=== PATIENT | female | born 1960 | race Caucasian/White ===

== ENCOUNTER 2017-03-03 17:26 | Inpatient (IN) ==
--- NOTE | 2017-03-03 17:43 | Emergency Department Note ---
Disposition Clinical Impression: Abdominal pain Disposition: Still a Patient Condition: Good Referrals: NONE,PCP [Primary Care Provider] - Forms: Work/School Release, ED Satisfaction Letter General Adult HPI - General Chief complaint: ED Abdominal Pain Stated complaint: ABD PAIN Time Seen by Provider: 03/03/17 17:37 Source: patient Limitations: no limitations - History of Present Illness Pain Scale: 8 - Related Data Allergies Allergy/AdvReac Type Severity Reaction Status Date / Time sulfamethoxazole AdvReac See Verified 03/03/17 17:30 [From Bactrim] Comments trimethoprim [From Bactrim] AdvReac See Verified 03/03/17 17:30 Comments Past Medical History - Past Medical History Medical history: Reports: asthma, COPD, diabetes, hyperlipidemia, hypertension Psychiatric history: 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 - Social History Smoking Status: Current every day smoker Smokeless Tobacco Status: No Alcohol use: Reports: rarely Drug use: Reports: marijuana Physical Exam - General Limitations: no limitations General appearance: alert Course Vital Signs Temperature 97.9 F 03/03/17 17:29 Pulse Rate 65 03/03/17 17:29 Respiratory Rate 22 03/03/17 17:29 Blood Pressure 155/84 03/03/17 17:29 O2 Sat by Pulse Oximetry 95 03/03/17 17:29 Temperature 97.9 F 03/03/17 17:29 Pulse Rate 65 03/03/17 17:29 Respiratory Rate 22 03/03/17 17:29 Blood Pressure 155/84 03/03/17 17:29 O2 Sat by Pulse Oximetry 95 03/03/17 17:29 Oxygen Delivery Oxygen Delivery Room Air Medical Decision Making - Lab Data Result diagrams: 03/03/17 17:55 03/03/17 17:55 Lab Results 03/03/17 03/03/17 Range/Units 17:55 17:55 WBC 24.9 H (4.3-11.1) K/mcL RBC 5.06 H (3.82-4.97) M/mcL Hgb 14.6 (11.5-15.4) g/dL Hct 45.5 H (35.3-44.9) % MCV 89.9 (83.0-100.0) fL MCH 28.9 (28.0-33.3) pg MCHC 32.1 (31.6-35.5) g/dL RDW 13.1 (11.5-14.5) % Plt Count 314 (140-400) K/mcL MPV 10.5 (9.4-12.4) fL Immature Gran % 0.6 (0-4) % Seg Neutrophils % 85.8 % Lymphocytes % 8.7 % Monocytes % 4.7 % Eosinophils % 0.0 % Basophils % 0.2 % Neutrophils # 21.4 H (1.6-8.9) K/mcL Lymphocytes # 2.2 (0.6-4.6) K/mcL Monocytes # 1.2 (0.0-1.3) K/mcL Eosinophils # 0.0 (0.0-0.6) K/mcL Basophils # 0.1 (0.0-0.2) K/mcL Platelet Estimate Normal (Normal) Sodium 137 (136-145) mEq/L Potassium 4.2 (3.5-4.5) mEq/L Chloride 102 (98-109) mEq/L Carbon Dioxide 25 (19-29) mEq/L BUN 11 (7-20) mg/dL Creatinine 0.77 (0.57-1.11) mg/dL Est GFR ( Amer) > 60 (> 60) Est GFR (Non-Af Amer) > 60 (> 60) BUN/Creatinine Ratio 14 (6-26) Glucose 154 H (70-99) mg/dL Calculated Osmolality 286 (280-300) Calcium 9.5 (8.6-10.8) mg/dL Total Bilirubin < 0.3 (0.2-1.2) mg/dL AST 20 (5-34) Units/L ALT 25 (0-55) Units/L Alkaline Phosphatase 65 (38-126) Units/L Serum Total Protein 8.0 (6.0-8.3) g/dL Albumin 3.9 (3.5-5.0) g/dL Globulin 4.1 H (2.4-3.5) g/dL Albumin/Globulin Ratio 1.0 L (1.1-2.2) Lipase 23 (8-78) Units/L Attestation Statement - Attestation Attestation: I examined this patient and my medical decision-making was reviewed with the Resident Physician. I agree with the documented findings, disposition and treatment plan as described except to the extent set forth below. [id number] time provided Patient was sent from [facility] with concern for biliary colic but they were unable to process an ultrasound. She complains of upper abdominal pain but appears in no acute distress 18:23: Care to be endorsed to the oncoming physician Dr. Brush at 7 PM pending gallbladder ultrasound.
[2017-03-03] MEDS ORDERED: Hyoscyamine SL 0.125 MG TAB.SUBL SL STA (17:45)
--- NOTE | 2017-03-03 17:48 | Emergency Department Note ---
Disposition Clinical Impression: Abdominal pain Qualifiers: Abdominal location: right upper quadrant Qualified Code(s): R10.11 - Right upper quadrant pain Disposition: Still a Patient Condition: Good Referrals: NONE,PCP [Primary Care Provider] - Forms: ED Satisfaction Letter, Work/School Release Time of Disposition: 18:45 General Adult HPI - General Chief complaint: ED Abdominal Pain Stated complaint: ABD PAIN Time Seen by Provider: 03/03/17 17:37 Source: patient Limitations: no limitations Nursing Notes Reviewed: Yes Vital Signs Reviewed: Yes - History of Present Illness HPI Narrative: Right Upper quadrant abdominal pain that started last night. Associated nausea and vomiting. No diarrhea. No fevers. Pain started in her back and radiates to her abdomen. Has been seen at outlying facility and sent here. Pain Scale: 8 - Related Data Allergies Allergy/AdvReac Type Severity Reaction Status Date / Time sulfamethoxazole AdvReac See Verified 03/03/17 17:30 [From Bactrim] Comments trimethoprim [From Bactrim] AdvReac See Verified 03/03/17 17:30 Comments All systems ED: reviewed and negative except as stated. Constitutional: Denies: fever, chills Cardiovascular: Denies: chest pain, syncope Respiratory: Denies: cough, dyspnea Gastrointestinal: Reports: abdominal pain, nausea, vomiting. Denies: diarrhea, hematemesis, melena, hematochezia Genitourinary: Denies: urgency, dysuria, frequency, hematuria Musculoskeletal: Reports: back pain (Radiates to her right upper quadrant.). 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 Absent: scleral icterus - ENT ENT exam: normal exam, normal oropharynx, mucous membranes moist - Neck Neck exam: Present: normal inspection, full ROM, trachea midline. Absent: tenderness - Chest Chest inspection: Present: normal inspection, symmetric chest wall rise. Absent : tenderness, rash - Respiratory Respiratory exam: Present: normal lung sounds bilaterally. Absent: respiratory distress, accessory muscle use - Cardiovascular Cardiovascular exam: Present: regular rate, normal rhythm, normal heart sounds - Abdominal Exam Abdominal exam: Present: soft, tenderness (Right upper quadrant on palpation.), guarding (Right upper quadrant), Hayes's sign. Absent: distention, rebound, rigidity, organomegaly, Rovsing's sign, tenderness at McBurney's Point - Extremities Exam Extremities exam: Present: normal inspection, full ROM, normal capillary refill. Absent: tenderness, pedal edema Course Course Narrative: Patient ambulates to bed without difficulty. She is standing during most of my exam. She appears pleasant. She states that last night she started having nausea and vomiting. She describes the pain in her right back that radiates to her right upper quadrant. She states that she was seen at [facility] and given Phenergan and this helped with her nausea and vomiting however the pain is still present. She was sent here for right upper quadrant abdominal ultrasound. She is afraid that she might have a gallbladder issue. She denies any other medical history. She states she has never had any abdominal surgeries. On exam her lung sounds are clear heart tones are normal. She does have a positive Hayes sign. She appears very uncomfortable whenever I palpate her right upper quadrant. No signs of edema to her extremities. We have ordered a right upper quadrant abdominal ultrasound as well as basic lab workup. She does have an elevated white blood cell count. We have ordered her Levsin to help with her abdominal pain. We will sign patient now tonight crew. Vital Signs Temperature 97.9 F 03/03/17 17:29 Pulse Rate 65 03/03/17 17:29 Respiratory Rate 22 03/03/17 17:29 Blood Pressure 155/84 03/03/17 17:29 O2 Sat by Pulse Oximetry 95 03/03/17 17:29 Temperature 97.9 F 03/03/17 17:29 Pulse Rate 65 03/03/17 17:29 Respiratory Rate 22 03/03/17 17:29 Blood Pressure 155/84 03/03/17 17:29 O2 Sat by Pulse Oximetry 95 03/03/17 17:29 Oxygen Delivery Oxygen Delivery Room Air Medical Decision Making - Medical Records Medical records reviewed: Yes I reviewed the patient's medical records. - Lab Data Lab results reviewed: Yes I reviewed the patient's lab results. Result diagrams: 03/03/17 17:55 03/03/17 17:55 Lab Results 03/03/17 03/03/17 Range/Units 17:55 17:55 WBC 24.9 H (4.3-11.1) K/mcL RBC 5.06 H (3.82-4.97) M/mcL Hgb 14.6 (11.5-15.4) g/dL Hct 45.5 H (35.3-44.9) % MCV 89.9 (83.0-100.0) fL MCH 28.9 (28.0-33.3) pg MCHC 32.1 (31.6-35.5) g/dL RDW 13.1 (11.5-14.5) % Plt Count 314 (140-400) K/mcL MPV 10.5 (9.4-12.4) fL Immature Gran % 0.6 (0-4) % Seg Neutrophils % 85.8 % Lymphocytes % 8.7 % Monocytes % 4.7 % Eosinophils % 0.0 % Basophils % 0.2 % Neutrophils # 21.4 H (1.6-8.9) K/mcL Lymphocytes # 2.2 (0.6-4.6) K/mcL Monocytes # 1.2 (0.0-1.3) K/mcL Eosinophils # 0.0 (0.0-0.6) K/mcL Basophils # 0.1 (0.0-0.2) K/mcL Platelet Estimate Normal (Normal) Sodium 137 (136-145) mEq/L Potassium 4.2 (3.5-4.5) mEq/L Chloride 102 (98-109) mEq/L Carbon Dioxide 25 (19-29) mEq/L BUN 11 (7-20) mg/dL Creatinine 0.77 (0.57-1.11) mg/dL Est GFR ( Amer) > 60 (> 60) Est GFR (Non-Af Amer) > 60 (> 60) BUN/Creatinine Ratio 14 (6-26) Glucose 154 H (70-99) mg/dL Calculated Osmolality 286 (280-300) Calcium 9.5 (8.6-10.8) mg/dL Total Bilirubin < 0.3 (0.2-1.2) mg/dL AST 20 (5-34) Units/L ALT 25 (0-55) Units/L Alkaline Phosphatase 65 (38-126) Units/L Serum Total Protein 8.0 (6.0-8.3) g/dL Albumin 3.9 (3.5-5.0) g/dL Globulin 4.1 H (2.4-3.5) g/dL Albumin/Globulin Ratio 1.0 L (1.1-2.2) Lipase 23 (8-78) Units/L S.B.A.R. - S.Eduardo.A.Jasson. Situation: Demographics (Patient sent from [facility] for a right upper quadrant abdominal ultrasound. Complaining of right upper quadrant pain that started last night. Nausea. Controlled with Phenergan.) Background: Presenting Complaint (Upper quadrant pain and nausea.) Assessment: Course and respsone to treatment (Phenergan control patient's nausea and vomiting. Left stent appears to help with the pain.), Outstanding Labs (Right upper quadrant ultrasound.) Recommendation: Recommendation based on pending studies, treatments, or consults (Physical pending right upper quadrant ultrasound. Patient does have an elevated white blood cell count.) S.B.A.R. Report Given to: Gonsalo Delatorre Repor Time: 18:52
[2017-03-03 18:02] LABS: Basophils # 0.1 K/mcL (0.0-0.2); Basophils % 0.2 %; Hematocrit 45.5 % (35.3-44.9); Hemoglobin 14.6 g/dL (11.5-15.4); Immature Granulocytes % 0.6 % (0-4); Lymphocytes # 2.2 K/mcL (0.6-4.6); Lymphocytes % 8.7 %; Mean Corpuscular HGB Conc 32.1 g/dL (31.6-35.5); Mean Corpuscular Hemoglobin 28.9 pg (28.0-33.3); Mean Corpuscular Volume 89.9 fL (83.0-100.0); Mean Platelet Volume 10.5 fL (9.4-12.4); Monocytes # 1.2 K/mcL (0.0-1.3); Monocytes % 4.7 %; Neutrophils # 21.4 K/mcL (1.6-8.9); Platelet Count 314 K/mcL (140-400); Red Blood Count 5.06 M/mcL (3.82-4.97); Red Cell Distribution Width 13.1 % (11.5-14.5); Segmented Neutrophils % 85.8 %
[2017-03-03 18:19] LABS: Alanine Aminotransferase 25 Units/L (0-55); Albumin 3.9 g/dL (3.5-5.0); Alkaline Phosphatase 65 Units/L (38-126); Aspartate Amino Transferase 20 Units/L (5-34); BUN/Creatinine Ratio 14 (6-26); Blood Urea Nitrogen 11 mg/dL (7-20); Calcium 9.5 mg/dL (8.6-10.8); Carbon Dioxide 25 mEq/L (19-29); Chloride 102 mEq/L (98-109); Globulin 4.1 g/dL (2.4-3.5); Glucose 154 mg/dL (70-99); Lipase 23 Units/L (8-78); Osmolality,Calculated 286 (280-300); Platelet Estimate Normal (Normal); Potassium 4.2 mEq/L (3.5-4.5); Sodium 137 mEq/L (136-145); eGFR For African Americans > 60 (> 60); eGFR For Non-African Americans > 60 (> 60)
[2017-03-03 18:20] LABS: Bilirubin,Total < 0.3 mg/dL (0.2-1.2)
[2017-03-03] MEDS ORDERED: 0.9 % Sodium Chloride 1,000 ML IVC ONE (19:25)
[2017-03-03] MEDS ORDERED: *HR* HYDROmorphone (PF) 1 MG/ML SYRINGE IVP ONE ×2 (19:25→20:38)
[2017-03-03] MEDS ORDERED: Ondansetron 4 MG/2 ML VIAL IVP ONE (19:25)
--- NOTE | 2017-03-03 20:41 | Emergency Department Note ---
Disposition Clinical Impression: Acute cholecystitis Abdominal pain Qualifiers: Abdominal location: right upper quadrant Qualified Code(s): R10.11 - Right upper quadrant pain Disposition: Admitted As Inpatient Condition: Good General Adult HPI - General Chief complaint: ED Abdominal Pain Stated complaint: ABD PAIN Time Seen by Provider: 03/03/17 17:37 Source: patient Limitations: no limitations - History of Present Illness Pain Scale: 8 - Related Data Allergies Allergy/AdvReac Type Severity Reaction Status Date / Time sulfamethoxazole AdvReac See Verified 03/03/17 17:30 [From Bactrim] Comments trimethoprim [From Bactrim] AdvReac See Verified 03/03/17 17:30 Comments Constitutional: Denies: fever, chills Cardiovascular: Denies: chest pain, syncope Respiratory: Denies: cough, dyspnea Gastrointestinal: Reports: abdominal pain, nausea, vomiting. Denies: diarrhea, hematemesis, melena, hematochezia Genitourinary: Denies: urgency, dysuria, frequency, hematuria Musculoskeletal: Reports: back pain (Radiates to her right upper quadrant.). 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 Anderson and Dr. Lindsay. Patient with significant right upper quadrant tenderness with acute onset of abdominal pain as well as nausea and vomiting. Elevated white count with findings consistent for acute cholecystitis. Will consult surgery in regards to further management. - Consultations Consultation #1: Discussed with Dr. Macedo. The case was discussed in its entirety including the history and physical as well as the elevated white count and ultrasound showing gallstones with pericholecystic fluid and a positive Hayes sign for concerning for acute cholecystitis. Dr. Macedo recommends admission to the hospital service and antibiotics which he is leaving up to the hospitalist team. He will consult on her and possibly take her to surgery tomorrow. Consultation #2: Discussed with Dr. Mares. Patient accepted for hospital admission. Request Zosyn to be started. Vital Signs Temperature 97.9 F 03/03/17 17:29 Pulse Rate 65 03/03/17 17:29 Respiratory Rate 22 03/03/17 17:29 Blood Pressure 155/84 03/03/17 17:29 O2 Sat by Pulse Oximetry 95 03/03/17 17:29 Temperature 97.9 F 03/03/17 17:29 Pulse Rate 87 03/03/17 20:56 Respiratory Rate 18 03/03/17 21:22 Blood Pressure 131/82 03/03/17 21:22 O2 Sat by Pulse Oximetry 92 03/03/17 20:56 Oxygen Delivery Oxygen Delivery Room Air Medical Decision Making - Lab Data Result diagrams: 03/03/17 17:55 03/03/17 17:55 Lab Results 03/03/17 03/03/17 Range/Units 17:55 17:55 WBC 24.9 H (4.3-11.1) K/mcL RBC 5.06 H (3.82-4.97) M/mcL Hgb 14.6 (11.5-15.4) g/dL Hct 45.5 H (35.3-44.9) % MCV 89.9 (83.0-100.0) fL MCH 28.9 (28.0-33.3) pg MCHC 32.1 (31.6-35.5) g/dL RDW 13.1 (11.5-14.5) % Plt Count 314 (140-400) K/mcL MPV 10.5 (9.4-12.4) fL Immature Gran % 0.6 (0-4) % Seg Neutrophils % 85.8 % Lymphocytes % 8.7 % Monocytes % 4.7 % Eosinophils % 0.0 % Basophils % 0.2 % Neutrophils # 21.4 H (1.6-8.9) K/mcL Lymphocytes # 2.2 (0.6-4.6) K/mcL Monocytes # 1.2 (0.0-1.3) K/mcL Eosinophils # 0.0 (0.0-0.6) K/mcL Basophils # 0.1 (0.0-0.2) K/mcL Platelet Estimate Normal (Normal) Sodium 137 (136-145) mEq/L Potassium 4.2 (3.5-4.5) mEq/L Chloride 102 (98-109) mEq/L Carbon Dioxide 25 (19-29) mEq/L BUN 11 (7-20) mg/dL Creatinine 0.77 (0.57-1.11) mg/dL Est GFR ( Amer) > 60 (> 60) Est GFR (Non-Af Amer) > 60 (> 60) BUN/Creatinine Ratio 14 (6-26) Glucose 154 H (70-99) mg/dL Calculated Osmolality 286 (280-300) Calcium 9.5 (8.6-10.8) mg/dL Total Bilirubin < 0.3 (0.2-1.2) mg/dL AST 20 (5-34) Units/L ALT 25 (0-55) Units/L Alkaline Phosphatase 65 (38-126) Units/L Serum Total Protein 8.0 (6.0-8.3) g/dL Albumin 3.9 (3.5-5.0) g/dL Globulin 4.1 H (2.4-3.5) g/dL Albumin/Globulin Ratio 1.0 L (1.1-2.2) Lipase 23 (8-78) Units/L Attestation Statement - Attestation Attestation: I, Bienvenido Brush MD, personally evaluated this patient and discussed their management with the resident physician. I reviewed the resident's note and agree with the documented findings, medical decision making, and plan of care. This patient was signed out at shift change from Dr. Anderson and Dr. Lindsay. Patient further notes for complete details of history and physical examination. At shift change patient is awaiting results of a gallbladder ultrasound. Patient presented with a one-day history of right upper quadrant abdominal pain associated with nausea and vomiting. No definite fever. No GI bleed symptoms. On examination patient is a well-developed well-nourished female in no acute distress but does appear to be in moderate discomfort. She is alert and oriented 3. There is no cyanosis or diaphoresis. Chest is nontender to palpation. Breath sounds are clear and equal bilaterally. Heart regular rate and rhythm. Abdomen is soft with present bowel sounds. There is marked right upper quadrant tenderness on direct palpation with guarding. Labs reviewed. WBC 24. Hepatic enzymes normal. Gallbladder ultrasound positive for cholelithiasis with acute cholecystitis. Dr. Delatorre discussed with the surgeon extension service supervisor, Dr. Macedo. He recommended admission by the hospitalist and he will consult on the patient tomorrow. The hospitalist, Dr. Mares, was consulted and accepted admission of the patient.
[2017-03-03] MEDS ORDERED: Piperacillin/Tazobactam 3.375 GM in D5% in Water (Mini-Bag+) 100 ML IVPB ONE (20:47)
[2017-03-03] MEDS ORDERED: *HR* HYDROcodone/Acet 5/325 mg TABLET PO PRN (21:18)
[2017-03-03] MEDS ORDERED: Ondansetron 4 MG/2 ML VIAL IVP PRN (21:18)
[2017-03-03] MEDS ORDERED: Naloxone 0.4 MG/ML INJ IVP PRN (21:18)
[2017-03-03] MEDS ORDERED: Acetaminophen 325 MG TABLET PO PRN (21:18)
[2017-03-03] MEDS ORDERED: Dextrose Gel 15 GM PO PRN ×2 (21:27)
[2017-03-03] MEDS ORDERED: *HR* Dextrose 50 % in Water (Syg) 50 ML SYRINGE IVP PRN (21:27)
[2017-03-03] MEDS ORDERED: D5% in Water 1,000 ML IVC PRN (21:27)
--- NOTE | 2017-03-03 21:37 | Internal Med History&Physical ---
Date of Encounter: 03/03/17 Time of Encounter: 20:30 Assessment and Plan (1) Acute cholecystitis Current visit: Yes Status: Acute - RUQ abdominal pain with positive Hayes sign. - Gallbladder US found cholelithiasis along with gallbladder wall thickening, pericholecystic fluid, and a positive sonographic Hayse sign, suggestive of acute cholecystitis. - Possible surgery by Dr. Macedo tomorrow. Appreciate surgery evaluation and intervention. - Continue IV fluid and IV Zosyn. - NPO. - Pain control with prn pain medications. - Closely monitor. (2) Pre-operative cardiovascular examination Current visit: Yes Status: Acute - Patient has diabetes but reports no chest pain or known cardiac problem and has normal functional capacity at least 4 MET without symptoms. - Rad's Revised Cardiac Risk Index = 0 suggestive of 0.4 % risk of major cardiac event - Will obtain EKG for further evaluation. - If EKG is normal, patient will be considered low risk for intermediate-risk surgery. (3) COPD (chronic obstructive pulmonary disease) Current visit: Yes Status: Chronic - Supplemental oxygen and Duoneb prn. Qualifiers: COPD type: unspecified COPD Qualified Code(s): J44.9 - Chronic obstructive pulmonary disease, unspecified (4) Diabetes mellitus Current visit: Yes Status: Chronic - Insulin sliding scale with routine AccuCheck. Qualifiers: Diabetes mellitus type: type 2 Diabetes mellitus complication status: with unspecified complications Diabetes mellitus mcc insulin use: unspecified manager terminal insulin use status Qualified Code(s): E11.8 - Type 2 diabetes mellitus with unspecified complications (5) Hypertension Current visit: Yes Status: Chronic - Latest BP 131/82. - Will resume home antihypertensive regimen once home medication list is available. Qualifiers: Hypertension type: essential hypertension Qualified Code(s): I10 - Essential (primary) hypertension Internal Medicine - H&P: HPI Chief complaint: Right back pain radiating to RUQ abdomen Admitted From: Emergency Dept Plans for Post Hospital Care: Home History of present illness: Ms. Lucas is a 56 year old female With PMH of asthma, COPD (no home oxygen use), DM, HTN, HLD and history of pancreatitis. Patient presented with complaint of constant right back pain radiating to RUQ abdomen. Patient reports it started at 11 pm last night, about 4 hours after having [employer]. No modifying factor noted and patient cannot tell if eating makes any change since she has no appetite since. Other associated symptoms include nausea with dry heave, subjective fever and chills. Patient denies diarrhea, urinary symptoms, chest pain, shortness of breath. Patient denies known cardiac problem and is can walk more than 2 blocks without any difficulty. Patient's only surgical history is tubal ligation. Patient is full code. In ED, patient was noted to have WBC 24.9. Gallbladder US found cholelithiasis along with gallbladder wall thickening, pericholecystic fluid, and a positive sonographic Hayes sign, suggestive of acute cholecystitis. ED physician discussed the case with surgeon Dr. Macedo, who recommends antibiotic and admission to the hospital service as he will likely take her to surgery tomorrow. Past Med Surg Social Fam HX - Past Medical History Medical history: asthma, COPD, diabetes, hyperlipidemia, hypertension Psychiatric history: no psych history - Past Surgical History Surgical History: other (Tubal ligation.) - Social History Smoking Status: Current every day smoker Smokeless Tobacco Status: No Alcohol use: occasionally (2-3 times per week) Drug use: marijuana Internal Medicine - H&P: Meds Allergies sulfamethoxazole [From Bactrim] Adverse Reaction (Verified 03/03/17 17:30) See Comments VOMITING/DIARRHEA trimethoprim [From Bactrim] Adverse Reaction (Verified 03/03/17 17:30) See Comments VOMITING/DIARRHEA All Systems PM: A 10-system review of systems was performed and is negative for pertinent findings except as documented above in the HPI. - Constitutional Vitals: Temp Pulse Resp BP Pulse Ox 97.9 F 87 16 176/73 92 03/03/17 17:29 03/03/17 20:56 03/03/17 20:56 03/03/17 20:56 03/03/17 20:56 General appearance: Present: cooperative, no acute distress, obese, answers questions appropriately - Head Head exam: Present: atraumatic, normocephalic - Eye Eye exam: Present: EOMI, conjuntiva pink, sclera anicteric - Neck Neck exam general surgery: Present: supple, trachea midline - Respiratory Respiratory exam: Present: CTAB. Absent: accessory muscle use, rales, rhonchi, wheezes - Cardiovascular Cardiovascular exam: Present: RRR, +S1, +S2. Absent: diastolic murmur, gallop, rubs, systolic murmur - GI/Abdominal GI/Abdominal exam: Present: normal bowel sounds, soft, tenderness (RUQ abdominal tenderness with positive Hayes sign.). Absent: distended - Extremities Exam Extremities exam: Present: warm. Absent: cyanotic, pedal edema - Neurological Exam Neurological exam: Present: oriented X3, no focal deficits. Absent: pronater drift, facial droop, speech deficit - Skin Skin exam: Present: dry, intact Internal Med - H&P Results - Labs CBC & Chem 7: 03/03/17 17:55 03/03/17 17:55
[2017-03-03] MEDS ORDERED: Ipratropium/Albuterol Neb 3 ML IH PRN (21:45)
[2017-03-03] MEDS: 0.9 % Sodium Chloride 1,000 ML IVC SCH (22:34)
--- NOTE | 2017-03-03 23:00 | Event Note ---
Date of Encounter: 03/03/17 Time of Encounter: 22:58 Patient seen and exma jesikad with medical representative. Acute cholecystitis. Zosyn, hydrate, NPO. Will need cholecystectomy eventually and will consult surgery. No evidence of choledocholithiasis. Fair functional capacity. No prior known coronary disease. No exertional chest pain. EKG without ischemic changes. No need for further preoperative cardiac testing prior to surgery.
[2017-03-04] MEDS: Insulin LISPRO 300 UNITS/3 ML VIAL SQ SCH ×4 (01:35→17:01)
[2017-03-04 03:52] LABS: Basophils % 0.2 %; Eosinophils % 0.1 %; Hematocrit 42.3 % (35.3-44.9); Hemoglobin 13.5 g/dL (11.5-15.4); Immature Granulocytes % 0.5 % (0-4); Lymphocytes # 3.4 K/mcL (0.6-4.6); Lymphocytes % 15.3 %; Mean Corpuscular HGB Conc 31.9 g/dL (31.6-35.5); Mean Corpuscular Hemoglobin 29.2 pg (28.0-33.3); Mean Corpuscular Volume 91.4 fL (83.0-100.0); Mean Platelet Volume 10.6 fL (9.4-12.4); Monocytes # 1.8 K/mcL (0.0-1.3); Monocytes % 8.1 %; Neutrophils # 16.7 K/mcL (1.6-8.9); Platelet Count 245 K/mcL (140-400); Red Blood Count 4.63 M/mcL (3.82-4.97); Red Cell Distribution Width 13.2 % (11.5-14.5); Segmented Neutrophils % 75.8 %
[2017-03-04] MEDS: *HR* Morphine 2 MG/ML SYRINGE IVP PRN ×4 (03:55→22:14)
[2017-03-04 04:03] LABS: INR 1.2; Prothrombin Time 12.6 Seconds (9.4-12.1)
[2017-03-04 04:05] LABS: Activated Partial Thrombo Time 28.6 Seconds (26.0-36.0)
[2017-03-04 04:11] LABS: Alanine Aminotransferase 46 Units/L (0-55); Albumin 3.3 g/dL (3.5-5.0); Alkaline Phosphatase 60 Units/L (38-126); Aspartate Amino Transferase 29 Units/L (5-34); BUN/Creatinine Ratio 12 (6-26); Bilirubin,Total 0.4 mg/dL (0.2-1.2); Blood Urea Nitrogen 9 mg/dL (7-20); Calcium 8.6 mg/dL (8.6-10.8); Carbon Dioxide 27 mEq/L (19-29); Chloride 106 mEq/L (98-109); Globulin 3.4 g/dL (2.4-3.5); Glucose 154 mg/dL (70-99); Osmolality,Calculated 290 (280-300); Potassium 4.3 mEq/L (3.5-4.5); Sodium 139 mEq/L (136-145); Total Protein 6.7 g/dL (6.0-8.3); eGFR For African Americans > 60 (> 60); eGFR For Non-African Americans > 60 (> 60)
[2017-03-04] MEDS: Piperacillin/Tazobactam 3.375 GM in D5% in Water (Mini-Bag+) 100 ML IVPB SCH ×3 (05:00→17:00)
[2017-03-04] MEDS: *HR* Heparin 5,000 UNIT/ML VIAL SQ SCH ×3 (05:00→22:17)
--- NOTE | 2017-03-04 08:22 | General Surgery Consult Note ---
Date of Encounter: 03/04/17 Time of Encounter: 07:45 History of Present Illness Reason for consult: abdominal pain Requesting physician: Jesus Gaffney History of present illness: 56-year-old female admitted after presenting to [facility] ED due to abrupt onset of right upper quadrant abdominal pain with nausea and multiple episodes of emesis evening of 03/02/17. The symptoms progressed prompting the patient to seek medical attention in [facility]. The patient was referred to [facility] for further evaluation and treatment including an ultrasound of the gallbladder. The patient was noted to have a leukocytosis of approximately 24,000, the ultrasound was notable for diffuse diminished echogenicity of the liver consistent with hepatic steatosis as well as a stone measuring approximately 2.1 cm. There is suggestion of mild gallbladder wall thickening and pericholecystic fluid was identified. The patient's symptoms were con trolled but not eliminated in the emergency department. The patient was admitted for further evaluation care including a surgical consultation. Past medical history: Diabetes, COPD, hypertension, hyperlipidemia and actinomycosis of the mandible Surgical history: Tubal ligation, hemorrhoidectomy, and jaw surgery to address the actinomycosis of the mandible Medications: The patient denied being on any medication Allergies: Bactrim Social history: G3, P2, Ab1; daily smoker admitting to 1 pack per day for greater than 40 years; occasional alcohol (wine approximately once weekly); and daily marijuana use On physical examination: Obese female resting comfortably in her hospital bed. Patient is still complaining of right upper quadrant abdominal pain The patient is 1.6 m tall, weight 90.9 kg, BMI 35.5; maximum temperature 90.9 , pulse 78, respirations 16, blood pressure 157/85. SPO2 on room air 92-94% Skin: Warm, no obvious jaundice Cardiac: Regular rate, no appreciable murmurs Lungs: Basilar wheezes detected on the left side, bilateral scattered rales which clear with cough. Abdomen: Obese, tender in the right upper quadrant. No appreciable intra- abdominal masses or hepatosplenomegaly. Bowel sounds hypoactive Extremities: No obvious clubbing cyanosis or edema. Ultrasound of the gallbladder was personally reviewed Laboratories: White count 22.0; hemoglobin 13.5, hematocrit 42.3. Neutrophils 16.7% (on presentation 21.4%) Platelets 245,000 Electrolytes, BUN and creatinine within normal limits; glucose 154 with Accu- Chek 146 LFTs within normal limits. Impression: Acute cholecystitis with cholelithiasis with abrupt onset of symptoms and persistent right upper quadrant abdominal pain. Dehydration due to repeated episodes of emesis at the onset of symptoms, resolved with IV fluids. Obesity, diabetes, hypertension, hyperlipidemia, COPD In the presence of diabetes cholelithiasis has a higher risk of developing ascending cholangitis. The patient has persisting symptoms, surgery has been recommended. The patient is a reasonable candidate for laparoscopic cholecystectomy but understands that cholecystectomy may be necessary. Risks include hemorrhage, infection, intra-abdominal abscess, bile leak, injury to adjacent ducts, vessels, organs, bowel. Post cholecystectomy diarrhea may also occur. The patient is at increased risk for pneumonia due to her smoking history. Other risks such as cardiac dysrhythmia, NV are also present. This is been discussed extensively with the patient. The patient is willing to proceed with surgery. Consent has been obtained. Past Med Surg Social Fam HX - Past Medical History Medical history: asthma, COPD, diabetes, hyperlipidemia, hypertension Psychiatric history: no psych history - Past Surgical History Surgical History: other (Tubal ligation.) - Social History Smoking Status: Current every day smoker Smokeless Tobacco Status: No Alcohol use: occasionally (2-3 times per week) Drug use: marijuana - Family History Mother Age at : 77 Cause of : NV Hx Family Cardiac Disorders: Yes (NV) Hx Family Respiratory Disorders: Yes (COPD) Father Age at : 62 Cause of : NV Hx Family Cardiac Disorders: Yes Hx Family Respiratory Disorders: Yes (COPD) Medications and Allergies Allergies sulfamethoxazole [From Bactrim] Adverse Reaction (Verified 03/03/17 17:30) See Comments VOMITING/DIARRHEA trimethoprim [From Bactrim] Adverse Reaction (Verified 03/03/17 17:30) See Comments VOMITING/DIARRHEA Review of Systems All systems PM: A 10-system review of systems was performed and is negative for pertinent findings except as documented above in the HPI. General Surgery Exam Initial Vital Signs Temp Pulse Resp BP Pulse Ox 97.9 F 65 22 155/84 95 03/03/17 17:29 03/03/17 17:29 03/03/17 17:29 03/03/17 17:29 03/03/17 17:29 Exam Initial Vital Signs Temp Pulse Resp BP Pulse Ox 97.9 F 65 22 155/84 95 03/03/17 17:29 03/03/17 17:29 03/03/17 17:29 03/03/17 17:29 03/03/17 17:29 Results - Labs 03/04/17 03:29 03/04/17 03:29 Abnormal lab results WBC 22.0 K/mcL (4.3-11.1) H 03/04/17 03:29 Neutrophils # 16.7 K/mcL (1.6-8.9) H 03/04/17 03:29 Monocytes # 1.8 K/mcL (0.0-1.3) H 03/04/17 03:29 PT 12.6 Seconds (9.4-12.1) H 03/04/17 03:29 Glucose 154 mg/dL (70-99) H 03/04/17 03:29 POC Glucose 146 (58-89) H 03/04/17 05:37 Albumin 3.3 g/dL (3.5-5.0) L 03/04/17 03:29 Albumin/Globulin Ratio 1.0 (1.1-2.2) L 03/04/17 03:29 All other labs normal. Consult Discharge Plan - Plan Referrals: NONE,PCP [Primary Care Provider] -
[2017-03-04] MEDS: Albuterol 2.5 MG/3 ML NEBULIZER IH SCH ×5 (08:45→23:19)
[2017-03-04] MEDS ORDERED: Famotidine 20 MG/2 ML VIAL IVP SCH (09:00)
[2017-03-04] MEDS: 0.9 % Sodium Chloride 1,000 ML IVC SCH ×3 (10:30→22:14)
--- NOTE | 2017-03-04 14:43 | Internal Med Progress Note ---
Date of Encounter: 03/04/17 Time of Encounter: 10:05 - Assessment and plan (1) Acute cholecystitis Current Visit: Yes Status: Acute Assessment and plan: Acute cholecystitis with cholelithiasis - causing the RUQ pain, nausea and vomiting - symptoms improving Continue IV fluids, empiric IV Zosyn IV Pepcid, IV Zofran, IV morphine as needed for pain US gallbladder - cholelithiasis with gallbladder wall thickening, pericholecystic fluid and positive sonographic Hayes sign suggestive of acute cholecystitis WBC - 22.0 Lipase - 23 EKG - sinus rhythm with no acute ST-T changes Dr. Macedo has evaluated the patient - scheduled for laparoscopic cholecystectomy NPO, Labs in a.m. (2) COPD (chronic obstructive pulmonary disease) Current Visit: Yes Status: Chronic Assessment and plan: COPD - stable, not in exacerbation DuoNeb breathing treatment as needed, O2 via nasal cannula Qualifiers: COPD type: unspecified COPD Qualified Code(s): J44.9 - Chronic obstructive pulmonary disease, unspecified (3) Diabetes mellitus Current Visit: Yes Status: Chronic Assessment and plan: Diabetes mellitus type 2, [id number], hyperglycemia Continue insulin sliding scale, glucose checks Qualifiers: Diabetes mellitus type: type 2 Diabetes mellitus complication status: with unspecified complications Diabetes mellitus terminal worker insulin use: unspecified residential insulin use status Qualified Code(s): E11.8 - Type 2 diabetes mellitus with unspecified complications (4) Hypertension Current Visit: Yes Status: Chronic Assessment and plan: Essential hypertension, uncontrolled, monitor, IV Hydralazine PRN Qualifiers: Hypertension type: essential hypertension Qualified Code(s): I10 - Essential (primary) hypertension (5) DVT prophylaxis Current Visit: Yes Status: Acute Assessment and plan: Continue heparin subcutaneous - Time Spent With Patient 25 - 35 minutes - Subjective Interval history: Examined this morning. Patient is awake and alert. Not in any distress. Complains of right upper quadrant pain. States it has improved. No vomiting or diarrhea. No fever. Hemodynamically stable. Admitted for acute cholecystitis. Patient has been evaluated by Dr. Macedo. Schedule for laparoscopic cholecystectomy. Patient is a low risk for surgery. No other acute events or complaints. - Constitutional Vitals: Temp Pulse Resp BP Pulse Ox 99.1 F 91 16 174/85 92 03/04/17 10:45 03/04/17 10:45 03/04/17 11:21 03/04/17 10:45 03/04/17 11:21 General appearance: Present: cooperative, A&O X 3, no acute distress, obese, answers questions appropriately - Head Head exam: Present: atraumatic - Eye Eye exam: Present: EOMI - ENT ENT exam: Present: mucous membranes dry - Neck Neck exam general surgery: Present: supple - Respiratory Respiratory exam: Present: CTAB. Absent: rales, rhonchi, stridor, wheezes, tachypnea - Cardiovascular Cardiovascular exam: Present: RRR, +S1, +S2 - GI/Abdominal GI/Abdominal exam: Present: normal bowel sounds, soft, tenderness (Right upper quadrant tenderness with positive Hayes sign). Absent: distended, guarding, rigid - Extremities Exam Extremities exam: Present: radial pulses palpable and symetrical. Absent: cyanotic, pedal edema, tenderness - Neurological Exam Neurological exam: Present: alert, oriented X3, no focal deficits Internal Medicine: Result - Labs CBC & Chem 7: 03/04/17 03:29 03/04/17 03:29 - ABG Interpretation ABG results: PT/INR, D-dimer PT 12.6 Seconds (9.4-12.1) H 03/04/17 03:29 Consult Discharge Plan - Plan Referrals: NONE,PCP [Primary Care Provider] -
[2017-03-04] MEDS ORDERED: Albuterol 2.5 MG/3 ML NEBULIZER IH ONE (18:32)
[2017-03-04] MEDS ORDERED: Albuterol 2.5 MG/3 ML NEBULIZER ONE (18:34)
--- NOTE | 2017-03-04 18:54 | Anesthesia Evaluation PreOp ---
Date of Encounter: 03/04/17 Time of Encounter: 18:50 - Past History Planned Operation: Lap Cholecystectomy Cardiac History: HTN, Hyperlipidemia Pulmonary History: Smoker, COPD COURT CRIER History: Denies Any Significant HX Other Medical History: Diabetes Type II, Other (Obese) Anesthesia History: No Prior Anesthetic Complications : No Alcohol Use: occasionally (2-3 times per week) Drug use: marijuana Medications and Allergies No Known Home Drugs 03/04/17 [History] Allergies sulfamethoxazole [From Bactrim] Adverse Reaction (Verified 03/04/17 15:01) Vomiting trimethoprim [From Bactrim] Adverse Reaction (Verified 03/04/17 15:01) Diarrhea - Meds/Allergy Pre-op Review Medications Reviewed: Yes Allergies Reviewed: Yes Beta Blockers on Current Med List: No Anesthesia Results - Labs 03/04/17 03:29 03/04/17 03:29 Anesthesia Exam O2 Sat Height 1.6 m Weight 90.945 kg O2 Sat by Pulse Oximetry 92 O2 Sat by Pulse Oximetry 92 O2 Sat by Pulse Oximetry 93 O2 Sat by Pulse Oximetry 92 O2 Sat by Pulse Oximetry 93 O2 Sat by Pulse Oximetry 91 O2 Sat by Pulse Oximetry 92 O2 Sat by Pulse Oximetry 94 O2 Sat by Pulse Oximetry 92 O2 Sat by Pulse Oximetry 92 O2 Sat by Pulse Oximetry 98 Vital Signs Temp Pulse Resp BP Pulse Ox 97.9 F 65 22 155/84 95 03/03/17 17:29 03/03/17 17:29 03/03/17 17:29 03/03/17 17:29 03/03/17 17:29 Height: 5'3 Weight: 200 lbs NPO (# of Hours): MN Pain Scale: 0 - HEENT Pupil (Motor): Pupils equal, EOMI Mallampati: II Teeth: Normal Oral Opening: Greater than 3 - COURT CRIER LOC: Oriented COURT CRIER Motor: Normal RUE, Normal LUE, Normal RLE, Normal LLE, Normal Face COURT CRIER Sensory: Normal: RUE, LUE, RLE, LLE, Face - Cardiac Rhythm: Regular Murmur: None JVD: No Carotid Bruit: No - Pulmonary Breath Sounds: bilateral Clear Respiratory Effort: Symmetrical Anesthesia Assess/Plan ASA Score: 3 (HTN DM COPD) Modified Louann Scale for Level of Consciousness: Cooperative, oriented, and tranquil Anesthetic Plan: General Monitoring Plan: Standard Monitors Recovery Plan: PACU (Discussed GA, agrees to proceed)
[2017-03-04] MEDS ORDERED: Bupivacaine/EPI 1:200k 0.25%PF 30 ML VIAL ONE (18:56)
[2017-03-04] MEDS ORDERED: Lidocaine -MPF 2% 2 ML VIAL ONE (18:58)
[2017-03-04] MEDS ORDERED: *HR* FentaNYL (PF) 100 MCG/2 ML VIAL ONE (18:58)
[2017-03-04] MEDS ORDERED: Ondansetron 4 MG/2 ML VIAL ONE (18:58)
[2017-03-04] MEDS ORDERED: *HR* Propofol 200 MG/20 ML VIAL IVP ONE (18:58)
[2017-03-04] MEDS ORDERED: Dexamethasone 4 MG/ML VIAL ONE (18:58)
[2017-03-04] MEDS ORDERED: *HR* Rocuronium Bromide 50 MG/5 ML VIAL ONE (18:58)
[2017-03-04] MEDS ORDERED: Lidocaine -MPF 4% 5 ML AMPUL ONE (18:58)
[2017-03-04] MEDS ORDERED: *HR* Succinylcholine 200 MG/10 ML VIAL IVP ONE (19:07)
[2017-03-04] MEDS ORDERED: *HR* HYDROmorphone 2 MG/ML SYRINGE ONE (19:20)
[2017-03-04] MEDS ORDERED: Acetaminophen IV 1,000 MG/100 ML INFUS..BTL ONE (20:01)
[2017-03-04] MEDS ORDERED: *HR* HYDROmorphone (PF) 1 MG/ML SYRINGE IVP PRN (20:21)
[2017-03-04] MEDS ORDERED: Ondansetron 4 MG/2 ML VIAL IVP ONE (20:21)
[2017-03-04] MEDS ORDERED: Neostigmine Methylsulfate 3 MG/3 ML SYRINGE ONE (20:24)
--- NOTE | 2017-03-04 20:54 | Operative Note ---
Date of procedure: 03/04/17 Pre-op diagnosis: acute cholecystitis with hydrops, cholelithiasis Post-op diagnosis: same Procedure: Laparoscopic cholecystectomy, intraoperative cholangiogram Complications: None apparent Anesthesia: GETA Local Anesthetics: 0.25% Sensorcaine HCL with Epinephrine 1:200,000 SubQ (cc) ( 30 mL) Surgeon: José Manuel Macedo Estimated blood loss (cc): 15 IV fluids (cc): 1,000 Specimen: gallbladder Condition: stable Disposition: PACU Procedure in Detail: The patient was brought to the operating room where she was placed supine upon the operating room table. The patient was appropriately identified as to person and procedure. The accuracy of this information was confirmed by the procedure team. The patient was then intubated and anesthetized under the supervision of Dr.John Dejesus. The abdomen was prepped and draped in usual sterile fashion. Several milliliters of 0.25% bupivacaine with 1-200,000 epinephrine was infiltrated into the infraumbilical skin. A small transverse incision was made. Dissection was carried to the fascia. The fascia was grasped, elevated and infiltrated with several mL of 0.25% bupivacaine with 1- 200,000 units epinephrine. The fascia was incised. An 11 mm Xcel port was established. The rigid laparoscope was placed within the obturator to visualize passage through the layers of the anterior abdominal wall. Once the abdominal cavity was accessed, the obturator was replaced by the rigid laparoscope. The abdomen was insufflated with gaseous conduct side. There was no obvious visible injury from establishing the port but there were multiple adhesions of omentum to the anterior abdominal wall. I was able to visualize placement of another port in the subxiphoid area. Through this port the adhesions were dissected using the Ethicon harmonic santa. Once the adhesions were mobilized I was able to place the remaining ports along the right costal margin in the midclavicular and anterior axillary line. Each port site was infiltrated with 0.25% bupivacaine with 1-200,000 units epinephrine. The gallbladder was tensely distended. It was necessary to aspirate the gallbladder. Approximately 60 mL of clear mucoid fluid consistent with hydrops evacuated. The hydrops suggestive of acute obstruction of the cystic duct. When the gallbladder was decompressed it was able to be grasped and retracted. Dissection of the hepatoduodenal ligament allowed the identification and subsequent skeletonization of the cystic duct. A stone was impacted in the infundibulum of the gallbladder. The cystic duct was identified and clipped near the infundibulum of the gallbladder. Via a separate percutaneous insertion site, a Taut cholangiogram catheter was introduced. The cystic duct was incised, the cholangiogram catheter inserted. Using C-arm fluoroscopy a quantity gram was then completed. This demonstrated a normal appearing distal common bile duct with free flow contrast into the duodenum. There were no filling defects. The proximal hepatobiliary tree highlighted in a retrograde fashion and appeared normal. It appeared to cross medially and enter the common hepatic duct from the right side. An intraoperative reading was provided by [facility], indicating no pathology was seen. The cholangiogram catheter was removed, the cystic duct was clipped and divided. The cystic artery was identified, skeletonized, clipped and divided. The gallbladder was dissected from liver bed using the Ethicon harmonic santa. Once from the liver bed, the gallbladder was placed in an endoscopic pouch and removed via the infraumbilical opening. The gallbladder was retrieved and sent to pathology for analysis. A large gallstone was apparent. Acute inflammatory changes were evident in the liver bed and involving the gallbladder. Hemostasis was achieved with the application of Milagro to the liver bed. Once adequate hemostasis was obtained, the pneumoperitoneum was evacuated, the instrumentation removed. The fascia of the infraumbilical opening was closed with interrupted [id number] 0 Vicryl using S retractors. The port sites were closed with subcuticular 4-0 Vicryl. The incisions were sealed with Dermabond dermal adhesive. The patient was taken to recovery in stable condition. Needle, sponge, and instrument counts were correct at the close of the case. Total volume of 0.25% bupivacaine with 1-200, 000 units epinephrine used during this procedure, 30 mL.
[2017-03-04] MEDS ORDERED: Ringers Solution, Lactated 500 ML IVC ONE (21:02)
[2017-03-04] MEDS ORDERED: 0.9 % Sodium Chloride 500 ML ONE (21:05)
[2017-03-04] MEDS ORDERED: 0.9 % Sodium Chloride 500 ML IVC ONE (21:15)
--- NOTE | 2017-03-04 21:41 | Anesthesia Evaluation Post Op ---
Date of Encounter: 03/04/17 Time of Encounter: 21:30 - Vital Signs Vital Signs: Vital Signs/O2 Sat/Glucose, Most Current Temp Pulse Resp BP Pulse Ox 03/04/17 21:29 94 12 155/75 93 03/04/17 21:19 72 16 157/83 96 03/04/17 21:09 99.4 F 66 12 158/82 97 03/04/17 20:59 64 14 148/72 98 03/04/17 20:49 61 14 142/63 98 03/04/17 20:39 97.8 F 61 16 102/68 100 03/04/17 17:59 99.3 F 86 16 147/60 92 - Lungs Lungs: Clear Ascult./Percussion - Airway Airway: Non-obstructed - Cardiovascular Regular Rate - Mental Status Mental Status: Alert & Oriented, Answers Appropriately - Pain Pain Scale: 1 - Nausea Vomiting Nausea Vomiting: Not Present - Hydration Hydration: Ice chips - Discharge PostOp Status: Transfer Patient to floor
[2017-03-05] MEDS: Piperacillin/Tazobactam 3.375 GM in D5% in Water (Mini-Bag+) 100 ML IVPB SCH (00:42)
[2017-03-05] MEDS: Insulin LISPRO 300 UNITS/3 ML VIAL SQ SCH ×2 (00:44→06:01)
[2017-03-05 01:53] LABS: Basophils % 0.2 %; Hematocrit 39.2 % (35.3-44.9); Hemoglobin 12.5 g/dL (11.5-15.4); Immature Granulocytes % 0.7 % (0-4); Lymphocytes # 1.1 K/mcL (0.6-4.6); Lymphocytes % 6.8 %; Mean Corpuscular HGB Conc 31.9 g/dL (31.6-35.5); Mean Corpuscular Hemoglobin 29.7 pg (28.0-33.3); Mean Corpuscular Volume 93.1 fL (83.0-100.0); Monocytes # 1.2 K/mcL (0.0-1.3); Neutrophils # 14.2 K/mcL (1.6-8.9); Platelet Count 221 K/mcL (140-400); Red Blood Count 4.21 M/mcL (3.82-4.97); Red Cell Distribution Width 13.2 % (11.5-14.5); Segmented Neutrophils % 85.3 %
[2017-03-05 01:58] LABS: BUN/Creatinine Ratio 8 (6-26); Blood Urea Nitrogen 6 mg/dL (7-20); Calcium 8.4 mg/dL (8.6-10.8); Carbon Dioxide 27 mEq/L (19-29); Chloride 104 mEq/L (98-109); Glucose 198 mg/dL (70-99); Osmolality,Calculated 289 (280-300); Potassium 4.3 mEq/L (3.5-4.5); Sodium 138 mEq/L (136-145); eGFR For African Americans > 60 (> 60); eGFR For Non-African Americans > 60 (> 60)
[2017-03-05] MEDS: Albuterol 2.5 MG/3 ML NEBULIZER IH SCH ×4 (03:27→16:39)
[2017-03-05] MEDS: *HR* Morphine 2 MG/ML SYRINGE IVP PRN (03:29)
[2017-03-05] MEDS: *HR* Heparin 5,000 UNIT/ML VIAL SQ SCH (06:01)
[2017-03-05] MEDS ORDERED: Ondansetron 4 MG/2 ML VIAL IVP PRN (06:47)
[2017-03-05] MEDS ORDERED: Dextrose Gel 15 GM PO PRN (06:47)
[2017-03-05] MEDS ORDERED: Ipratropium/Albuterol Neb 3 ML IH PRN (06:47)
[2017-03-05] MEDS ORDERED: Ringers Solution, Lactated 1,000 ML IVC SCH (06:47)
[2017-03-05] MEDS ORDERED: *HR* Dextrose 50 % in Water (Syg) 50 ML SYRINGE IVP PRN (06:47)
[2017-03-05] MEDS ORDERED: Acetaminophen 325 MG TABLET PO PRN (06:47)
[2017-03-05] MEDS ORDERED: *HR* HYDROmorphone (PF) 1 MG/ML SYRINGE IVP PRN (06:47)
[2017-03-05] MEDS ORDERED: D5% in Water 1,000 ML IVC PRN (06:47)
[2017-03-05] MEDS ORDERED: Naloxone 0.4 MG/ML INJ IVP PRN (06:47)
[2017-03-05] MEDS ORDERED: *HR* OxyCODONE/APAP 5/325 TABLET PO PRN (06:47)
[2017-03-05 07:55] LABS: Alanine Aminotransferase 73 Units/L (0-55); Albumin 2.9 g/dL (3.5-5.0); Albumin/Globulin Ratio 0.8 (1.1-2.2); Alkaline Phosphatase 58 Units/L (38-126); Aspartate Amino Transferase 40 Units/L (5-34); BUN/Creatinine Ratio 9 (6-26); Bilirubin,Total 0.5 mg/dL (0.2-1.2); Blood Urea Nitrogen 6 mg/dL (7-20); Calcium 8.7 mg/dL (8.6-10.8); Carbon Dioxide 29 mEq/L (19-29); Chloride 104 mEq/L (98-109); Globulin 3.6 g/dL (2.4-3.5); Glucose 129 mg/dL (70-99); Osmolality,Calculated 289 (280-300); Potassium 4.2 mEq/L (3.5-4.5); Sodium 140 mEq/L (136-145); Total Protein 6.5 g/dL (6.0-8.3); eGFR For African Americans > 60 (> 60); eGFR For Non-African Americans > 60 (> 60)
[2017-03-05] MEDS ORDERED: Piperacillin/Tazobactam 3.375 GM in D5% in Water (Mini-Bag+) 100 ML IVPB SCH (08:00)
[2017-03-05] MEDS ORDERED: Famotidine 20 MG/2 ML VIAL IVP SCH (09:00)
[2017-03-05] MEDS ORDERED: Insulin LISPRO 300 UNITS/3 ML VIAL SQ SCH (12:00)
--- NOTE | 2017-03-05 13:44 | General Surgery Progress Note ---
Date of Encounter: 03/05/17 Time of Encounter: 13:37 Subjective Narrative: General Surgery - POD #1 Patient feeling significantly improved, complaining of right upper quadrant abdominal pain but the back pain has resolved. Maximum temperature 99.7; pulse 95, respirations 16, blood pressure 132/68. Lungs: Rales right base with productive cough. Good inspiratory effort and satisfactory cough. The productive cough most likely related to the patient's long- standing history of tobacco use Abdomen: Tender along the right costal margin; correlates to the lysis of adhesions necessary to complete the laparoscopic cholecystectomy. Port sites clean and dry. Minimal ecchymoses related to administration of local anesthetic into all port sites. Active bowel sounds. Patient tolerated regular diet Laboratories: White count is improved to 16.6, hemoglobin 12.5 with hematocrit 39.2. Neutrophils have improved to 14.2 (previously 16.7) Electrolytes, BUN, creatinine within normal limits Bilirubin 0.5, AST 40, ALT 73, alkaline phosphatase 58 - elevated AST and ALT likely related to the surgery completed last evening. Impression: Postoperative day 1, status post laparoscopic cholecystectomy for acute cholecystitis with hydrops; cholelithiasis Acceptable postoperative status We complaints of pain expected to resolve with additional healing and passage of time If deemed medically stable can be discharged home. If discharged home, follow up my office 03/09/2017. Instructions post discharge Patient may consume a regular diet Activities as tolerated, lifting the less than 20 pounds Patient may shower, wash incisions with soap and water Tylenol, ibuprofen, Motrin, Advil etc. as needed for pain Prescription for [place] 5/325, one every 6 hours as needed for pain not relieved by [id number]-uhjtsgr medications Follow up my office, 03/09/17 Objective Vital Signs - Last 8 Hours Temp Pulse Resp BP Pulse Ox 03/05/17 11:11 16 93 03/05/17 11:04 99.7 F H 95 16 132/68 92 03/05/17 07:42 16 92 03/05/17 07:12 99.3 F 90 16 119/66 92 Intake and Output 03/04/17 03/05/17 03/05/17 23:59 07:59 15:59 Intake Total 1100 / 1100 100 / 100 100 / 100 Output Total 0 / 0 Balance 1085 / 1085 100 / 100 100 / 100 Intake: IV Fluids 1100 / 1100 100 / 100 100 / 100 0.9 % Sodium Chloride 1, 1000 / 1000 000 ML @ 125 mls/hr IVC . Q8H STEPHEN Rx#:[id number] Zosyn 3.375 GM In 100 / 100 100 / 100 100 / 100 Dextrose 5% (Minibag+) 100 ML 100 ML @ 25 mls/hr IVPB Q8HR STEPHEN Rx#: [id number] Oral 0 / 0 0 / 0 Output: Urine 0 / 0 0 / 0 Estimated Blood Loss Other: Meal NPO Percent of Meal Consumed 0% Weight 91.7 kg Blood Glucose* 182 173 153 Patient Weight 03/05/17 23:59 Weight 91.7 kg - Labs 03/05/17 01:17 03/05/17 07:34 Diabetes panel 03/05/17 03/05/17 Range/Units 01: 07:34 Sodium 138 140 (136-145) mEq/L Potassium 4.3 4.2 (3.5-4.5) mEq/L Chloride 104 104 (98-109) mEq/L Carbon Dioxide 27 29 (19-29) mEq/L BUN 6 L 6 L (7-20) mg/dL Creatinine 0.75 0.68 (0.57-1.11) mg/dL Glucose 198 H 129 H (70-99) mg/dL Calcium 8.4 L 8.7 (8.6-10.8) mg/dL AST 40 H (5-34) Units/L ALT 73 H (0-55) Units/L Alkaline Phosphatase 58 (38-126) Units/L Albumin 2.9 L (3.5-5.0) g/dL Calcium panel 03/05/17 03/05/17 Range/Units 01: 07:34 Calcium 8.4 L 8.7 (8.6-10.8) mg/dL Albumin 2.9 L (3.5-5.0) g/dL Pituitary panel 03/05/17 03/05/17 Range/Units 01: 07:34 Sodium 138 140 (136-145) mEq/L Potassium 4.3 4.2 (3.5-4.5) mEq/L Chloride 104 104 (98-109) mEq/L Carbon Dioxide 27 29 (19-29) mEq/L BUN 6 L 6 L (7-20) mg/dL Creatinine 0.75 0.68 (0.57-1.11) mg/dL Glucose 198 H 129 H (70-99) mg/dL Calcium 8.4 L 8.7 (8.6-10.8) mg/dL Adrenal panel 03/05/17 03/05/17 Range/Units 01:17 07:34 Sodium 138 140 (136-145) mEq/L Potassium 4.3 4.2 (3.5-4.5) mEq/L Chloride 104 104 (98-109) mEq/L Carbon Dioxide 27 29 (19-29) mEq/L BUN 6 L 6 L (7-20) mg/dL Creatinine 0.75 0.68 (0.57-1.11) mg/dL Glucose 198 H 129 H (70-99) mg/dL Calcium 8.4 L 8.7 (8.6-10.8) mg/dL Total Bilirubin 0.5 (0.2-1.2) mg/dL AST 40 H (5-34) Units/L ALT 73 H (0-55) Units/L Alkaline Phosphatase 58 (38-126) Units/L Albumin 2.9 L (3.5-5.0) g/dL - VTE Documentation of Mechanical Device: Intermittent pneumatic compression device Consult Discharge Plan - Plan Referrals: NONE,PCP [Primary Care Provider] -
--- NOTE | 2017-03-05 15:16 | Electrocardiograph Report ---
[place] [id number] Test Date: 2017-03-03 Pat Name: Sully Lucas Department: 104 Room: 3A Gender: F Dj Instructor: CASANDRA : 1960 Requested By: Trino Mares Order Number: [id number] Reading MD: Meme Durham Measurements Intervals Klemme Rate: 78 P: 52 HI: 151 QRS: 63 QRSD: 90 T: 42 QT: 346 QTc: 379 Interpretive Statements SINUS RHYTHM WITH MARKED SINUS ARRHYTHMIA Electronically Signed On 03-04-2017 22:23:01 EDT by Meme Durham
[2017-03-05 15:35] VITALS: BP 141/78
--- NOTE | 2017-03-05 15:47 | Discharge Summary ---
Date of Encounter: 03/05/17 Time of Encounter: 08:45 - Discharge Diagnosis (1) Acute cholecystitis Priority: Primary Status: Acute Comments: Acute cholecystitis with cholelithiasis - causing the RUQ pain, nausea and vomiting - s/p Lap cholecystectomy postop day #1 US gallbladder - cholelithiasis with gallbladder wall thickening, pericholecystic fluid and positive sonographic Hayes sign suggestive of acute cholecystitis WBC - 16.6 Lipase - 23 EKG - sinus rhythm with no acute ST-T changes Follow-up with Dr. Macedo on 03/09/2017 (2) COPD (chronic obstructive pulmonary disease) Priority: Secondary Status: Chronic Comments: COPD - stable, not in exacerbation DuoNeb breathing treatment as needed Qualifiers: COPD type: unspecified COPD Qualified Code(s): J44.9 - Chronic obstructive pulmonary disease, unspecified (3) Diabetes mellitus Priority: Secondary Status: Chronic Comments: Diabetes mellitus type 2, [id number], hyperglycemia Add metformin Qualifiers: Diabetes mellitus type: type 2 Diabetes mellitus complication status: with unspecified complications Diabetes mellitus ferry terminal supervisor insulin use: unspecified fci insulin use status Qualified Code(s): E11.8 - Type 2 diabetes mellitus with unspecified complications (4) Hypertension Priority: Secondary Status: Chronic Comments: Essential hypertension, controlled, monitor Add lisinopril Qualifiers: Hypertension type: essential hypertension Qualified Code(s): I10 - Essential (primary) hypertension - Discharge Medications Prescriptions: Ipratropium/Albuterol Neb [Duoneb] 3 ml IH Q6HR PRN #30 inh PRN Reason: Shortness Of Breath/Wheezing Ondansetron HCl 4 mg PO Q6HR PRN #20 tablet PRN Reason: Nausea And Vomiting OxyCODONE/APAP 5/325 [Percocet 5/325 MG] 1 each PO Q6HR PRN #20 tab PRN Reason: pain not relieved by Tylenol Famotidine [Acid Computator] 10 mg PO BID #14 tablet Lisinopril [Zestril] 10 mg PO DAILY #30 tablet metFORMIN [Glucophage] 500 mg PO BIDWM 30 Days metroNIDAZOLE [Flagyl] 500 mg PO TID 7 Days Home Medications: Famotidine [Acid Computator] 10 mg PO BID #14 tablet 03/05/17 [Rx] Ipratropium/Albuterol Neb [Duoneb] 3 ml IH Q6HR PRN #30 inh 03/05/17 [Rx] Lisinopril [Zestril] 10 mg PO DAILY #30 tablet 03/05/17 [Rx] Ondansetron HCl 4 mg PO Q6HR PRN #20 tablet 03/05/17 [Rx] OxyCODONE/APAP 5/325 [Percocet 5/325 MG] 1 each PO Q6HR PRN #20 tab 03/05/17 [Rx ] metFORMIN [Glucophage] 500 mg PO BIDWM 30 Days 03/05/17 [Rx] metroNIDAZOLE [Flagyl] 500 mg PO TID 7 Days 03/05/17 [Rx] Allergies/Adverse Reactions: Allergies sulfamethoxazole [From Bactrim] Adverse Reaction (Verified 03/04/17 15:01) Vomiting trimethoprim [From Bactrim] Adverse Reaction (Verified 03/04/17 15:01) Diarrhea Date of admission: 03/04/17 05:24 Primary care physician: PCP NONE Anticipated date of discharge: 03/05/17 - Patient Status Disposition: Home, Self-Care Condition: Good Overall status at discharge: patient is back to baseline - Discharge Instructions Instructions: Laparoscopic Cholecystectomy (DC) Follow Up With: José Manuel Macedo MD [Non-Partnered Physician] - 03/09/17 2:50 pm Forms: Work/School Release - Diet and Activity Activity: increase activity as tolerated Diet: low fat, low cholesterol Hospital course: Ms. Lucas is a 56 year old female with past medical history of hypertension, hyperlipidemia, diabetes and COPD. Patient presented to the ED with complaints of right upper quadrant pain and nausea and vomiting. Patient states it started a few hours after she had [employer]. Initial workup revealed elevated white count and ultrasound gallbladder revealed cholelithiasis and positive Hayes sign. She was started on IV antibiotics. She was on IV Zosyn and Flagyl. She was on IV pain medication as needed. Dr. Macedo and evaluated the patient and decided that a laparoscopic cholecystectomy would need to be done. On 2016 patient underwent lap cholecystectomy. She tolerated the procedure well. No complications. Patient returned to her room after surgery. She was then started on a clear liquid diet and advanced to regular diet. She tolerated oral diet well. Ambulating well. Her blood glucose has been elevated and she is being discharged on metformin. Patient's blood pressures also been elevated and she is being discharged on lisinopril. Patient has been explained about her condition and plan of care in detail. Understood and agreed. No unanswered questions. No other acute events or complications during her stay in the hospital. Patient is being discharged in a stable condition. - Time Spent with Patient Total time spent providing and/or coordinating discharge services: Greater than 30 minutes - Constitutional Vitals: Temp Pulse Resp BP Pulse Ox 98.5 F 99 16 141/78 92 03/05/17 15:33 03/05/17 15:33 03/05/17 15:33 03/05/17 15:33 03/05/17 15:33 General appearance: Present: cooperative, A&O X 3, no acute distress, obese, answers questions appropriately - Head Head exam: Present: atraumatic - Eye Eye exam: Present: EOMI - ENT ENT exam: Present: mucous membranes moist - Neck Neck exam general surgery: Present: supple - Respiratory Respiratory exam: Present: CTAB. Absent: rales, rhonchi, wheezes, tachypnea - Cardiovascular Cardiovascular exam: Present: RRR, +S1, +S2 - GI/Abdominal GI/Abdominal exam: Present: normal bowel sounds, soft, tenderness (Mild tenderness in right upper quadrant at surgical site). Absent: distended, firm, guarding Additional comments: Surgical site looks good - Extremities Exam Extremities exam: Present: radial pulses palpable and symetrical. Absent: calf tenderness, cyanotic, pedal edema - Neurological Exam Neurological exam: Present: alert, oriented X3, no focal deficits - VTE Documentation of Mechanical Device: Intermittent pneumatic compression device
== END 2017-03-05 17:42 | disposition home or self-care (01) | DRG 418 ==
LOC: 3ANU 17:26 → EMEROO 17:26 → 3ANU 21:23
PROVIDERS: ADMIT Hospitalist; ATTEND Family Medicine